=== PATIENT | male | born 1975 | race Two or more races ===

== ENCOUNTER 2024-08-21 10:21 | Inpatient (IN) | payer OTHER ==
[~2024-08-21] VITALS: Ht 182.9 cm; Wt 112.5 kg
--- NOTE | 2024-08-21 10:35 | NUR ---
PTE REFIEE DEBILIDAD ACOMOANADO DE VOMITOS Y DIARREAS . PTE CON PLAQUETAS EN [address] [place] . SE LE YOVANNY S/V Y SE UBICA EN YAZAN.
--- NOTE | 2024-08-21 13:08 | NUR ---
SE ORIENTA A PACIENTE SOBRE TX MEDICO, REFIERE ENTENDER. SE REALIZAN MUESTRAS DE LABORATORIO BAJO MEDIDAS ASEPTICAS. SE ADMINISTRAN MEDICAMENTOS FREDDIE ORDEN MEDICA. PENDIENTE RE-EVALUACION MEDICA.
[2024-08-21 13:41] LABS: HEMATOCRIT 43.8 % (39.0-48.0); MEAN CELL VOLUME 84.7 fL (80.0-100.00); MEAN CORPUSCULAR HGB CONC 34.2 g/dl (32.0-36.0); RED BLOOD COUNT 5.17 M/uL (4.00-6.00); RED CELL DISTRIBUTION WIDTH 14.1 % (11.5-14.5)
[2024-08-21 13:43] LABS: URINE APPEARANCE Clear; URINE BILIRRUBIN Negative (NEGATIVE); URINE BLOOD Negative; URINE COLOR Yellow; URINE GLUCOSE Negative (NEGATIVE); URINE KETONE Negative (NEGATIVE); URINE LEUKOCYTE Negative; URINE NITRATE Negative; URINE PROTEIN Trace (NEGATIVE); URINE UROBILINOGEN 0.2 E.U./dl
[2024-08-21 13:47] LABS: URINE EPITHELIAL CELLS 5.2 uL (0.0-38.8); URINE WBC 8.2 uL (0.0-23.2)
[2024-08-21 13:50] LABS: URINE BACTERIA 3.6 uL (0.0-1933); URINE RBC 0.5 uL (0.0-20.8)
[2024-08-21 13:58] LABS: INR 0.96; PARTIAL THROMBOPLASTIN TIME 34.8 SECONDS (22.0-34.0); PROTHROMBIN TIME 10.5 SECONDS (9.0-11.5)
[2024-08-21 14:02] LABS: CALCIUM 8.8 mg/dL (8.5-10.1); CREATININE SERUM 0.8 mg/dL (0.70-1.30); GFR 103.18; POTASSIUM 3.46 mEq/L (3.5-5.1)
[2024-08-21 14:26] LABS: PLATELET COUNT 27 K/uL (150-450)
[2024-08-21] MEDS ORDERED: POTASSIUM CHLORIDE 20MEQ/100ML H2O PB IV ONE (19:08)
[2024-08-22 06:36] LABS: HEMATOCRIT 41.1 % (39.0-48.0); HEMOGLOBIN 13.9 g/dL (13-16.00); MEAN CELL VOLUME 84.5 fL (80.0-100.00); MEAN CORPUSCULAR HEMOGLOBIN 28.5 pg (27.00-32.0); MEAN CORPUSCULAR HGB CONC 33.7 g/dl (32.0-36.0); RED BLOOD COUNT 4.86 M/uL (4.00-6.00)
[2024-08-22 08:40] LABS: PLATELET COUNT 28 K/uL (150-450)
[2024-08-22] MEDS ORDERED: LOSARTAN/HYDROCHLOROTHIAZIDE 1 TAB TABLET PO SCH (11:26)
[2024-08-22] MEDS ORDERED: 0.9 % SODIUM CHLORIDE 1,000 ML IV SCH (11:30)
[2024-08-22] MEDS ORDERED: PANTOPRAZOLE SODIUM 40 MG/VIAL VIAL IV SCH (11:30)
[2024-08-22] MEDS ORDERED: POTASSIUM CHLORIDE 20MEQ/100ML H2O PB IV NR (11:45)
[2024-08-22] MEDS ORDERED: ACETAMINOPHEN 500 MG GEL..CAP PO PRN (11:45)
[2024-08-22 16:53] VITALS: BP 148/93; O2SAT 96
[2024-08-22 23:55] VITALS: BP 154/97; O2SAT 97
[2024-08-23 05:48] LABS: HEMATOCRIT 38.4 % (39.0-48.0); HEMOGLOBIN 13.3 g/dL (13-16.00); MEAN CELL VOLUME 83.9 fL (80.0-100.00); MEAN CORPUSCULAR HGB CONC 34.6 g/dl (32.0-36.0); RED BLOOD COUNT 4.58 M/uL (4.00-6.00); RED CELL DISTRIBUTION WIDTH 14.1 % (11.5-14.5)
[2024-08-23 05:49] LABS: PLATELET COUNT 52 K/uL (150-450)
[2024-08-23 08:00] VITALS: BP 160/100; O2SAT 97
[2024-08-23 10:30] VITALS: BP 155/90
== END 2024-08-23 11:52 | disposition home or self-care (01) | DRG 866 ==
LOC: ER 10:23 → MEDI 18:51
PROVIDERS: Emergency Medicine; General Practice; ADMIT Student in an Organized Health Care Education/Training Program; ATTEND Student in an Organized Health Care Education/Training Program
PROC: BW40ZZZ Ultrasonography of Abdomen (ICD-10-PCS; principal; 2024-08-21)
DX: A90 Dengue fever [classical dengue] (principal); D69.6 Thrombocytopenia, unspecified

== ENCOUNTER 2024-12-31 10:19 | Emergency (ER) | payer OTHER ==
[~2024-12-31] VITALS: Ht 182.9 cm; Wt 114.8 kg
[2024-12-31] MEDS ORDERED: LOSARTAN-HCTZ1 EAC2 PO (11:34)
[2024-12-31] MEDS ORDERED: KETOROLAC TROMETHAMINE 60 MG VIAL IM ONE (12:00)
[2024-12-31] MEDS ORDERED: ORPHENADRINE CITRATE 30 MG/ML AMPUL IM ONE (12:00)
[2024-12-31] MEDS ORDERED: DEXAMETHASONE SODIUM PHOSPHATE 4 MG/ML VIAL IM ONE (12:00)
[2024-12-31] MEDS ORDERED: DICLOFENAC SODI75 MG PO (14:11)
[2024-12-31] MEDS ORDERED: BACLOFEN10 MG PO (14:11)
== END 2024-12-31 15:33 | disposition home or self-care (01) ==
LOC: ER 10:19 → EDBD 10:35 → ER 15:33
DX: M54.50 Low back pain, unspecified (principal); I10 Essential (primary) hypertension